=== PATIENT | male | born 1960 | race Caucasian/White ===

== ENCOUNTER 2016-06-21 07:13 | Day surgery (SDC) | payer OTHER ==
[~2016-06-21] VITALS: Ht 185.4 cm; Wt 122.5 kg
[2016-06-21] MEDS ORDERED: SIMETHICONE 40 MG/0.6 ML ML ONE (07:29)
[2016-06-21] MEDS: MEPERIDINE HCL/PF 100 MG/ML AMP ONE ×3 (09:04→09:19)
[2016-06-21] MEDS: MIDAZOLAM HCL 5 MG/5 ML VIAL ONE ×4 (09:04→09:12)
[2016-06-21 12:53] VITALS: BP 121/90; PULSE 67; RESP 14
== END 2016-06-21 10:30 | disposition home or self-care (01) ==
LOC: SDS 07:13
PROVIDERS: ATTEND Internal Medicine Gastroenterology
DX: Z12.11 Encounter for screening for malignant neoplasm of colon (principal); D12.3 Benign neoplasm of transverse colon; D12.5 Benign neoplasm of sigmoid colon; K57.30 Diverticulosis of large intestine without perforation or abscess without bleeding; K64.8 Other hemorrhoids; I10 Essential (primary) hypertension; E66.9 Obesity, unspecified; E78.5 Hyperlipidemia, unspecified; K21.9 Gastro-esophageal reflux disease without esophagitis; J45.909 Unspecified asthma, uncomplicated
CPT/HCPCS: 45380; J2175; J2250; J7030; 88305